=== PATIENT | female | born 1970 | race Caucasian/White ===

== ENCOUNTER → 2020-05-03 | Outpatient (CLI) | payer OTHER | END | disposition home or self-care (01) | LOC: CFH 10:40 | PROVIDERS: ATTEND Internal Medicine | DX: S43.431D Superior glenoid labrum lesion of right shoulder, subsequent encounter (principal); M75.51 Bursitis of right shoulder; M75.101 Unspecified rotator cuff tear or rupture of right shoulder, not specified as traumatic; X58.XXXD Exposure to other specified factors, subsequent encounter ==